=== PATIENT | female | born 1990 | race Hispanic/Latino ===

== ENCOUNTER 2022-10-17 23:04 | Emergency (ER) | payer MEDICAID ==
[2022-10-17] MEDS ORDERED: Fluorescein Opthalmic Strip ONE (23:11)
[2022-10-17] MEDS ORDERED: Tetracaine 0.5% PF 4 ML BOT ONE (23:11)
[2022-10-17] MEDS ORDERED: Erythromycin Base 0.5% Ophth Oint 3.5 gm Tube ONE (23:31)
[2022-10-17] MEDS ORDERED: Loratadine 10 MG TAB ONE (23:31)
== END 2022-10-17 23:43 | disposition home or self-care (01) ==
LOC: MADERS 23:04
DX: S05.02XA Injury of conjunctiva and corneal abrasion without foreign body, left eye, initial encounter (principal); H11.422 Conjunctival edema, left eye; X58.XXXA Exposure to other specified factors, initial encounter
CPT/HCPCS: 99283